=== PATIENT | female | born 1995 | race Two or more races ===

== ENCOUNTER 2020-12-01 12:12 | Emergency (ER) | payer OTHER ==
[~2020-12-01] VITALS: Ht 167.6 cm; Wt 56.7 kg
== END 2020-12-01 15:48 | disposition home or self-care (01) ==
LOC: ER 12:12
DX: R09.81 Nasal congestion (principal)

== ENCOUNTER → 2025-01-25 | Emergency (ER) | payer OTHER ==
[~2025-01-25] VITALS: Ht 167.6 cm; Wt 59.0 kg
[~2025-01-25] MED LIST: DEXAMETHASONE SODIUM PHOSPHATE 4 MG/ML VIAL IM ONE; DEXAMETHASONE SODIUM PHOSPHATE 4 MG/ML VIAL ONE; GUAIFEN/DEXTROMETHORPHAN/PE 10 ML BLIST.PACK PO ONE; KETOROLAC TROMETHAMINE 60 MG VIAL IM ONE; OSEL75CA PO
[2025-01-25 20:50] LABS: COVID-19 AG NEGATIVE (NEGATIVE)
== END | disposition home or self-care (01) ==
LOC: ER 18:38
PROVIDERS: General Practice
DX: B34.9 Viral infection, unspecified (principal); Z20.822 Contact with and (suspected) exposure to COVID-19